=== PATIENT | male | born 1985 | race Two or more races ===

== ENCOUNTER 2016-08-21 09:15 | Emergency (ER) | payer SELFPAY ==
[2016-08-21] MEDS ORDERED: MORPHINE SULFATE 4 MG/ML DISP.SYRIN. IV ONE (10:15)
[2016-08-21] MEDS ORDERED: ONDANSETRON PF 4 MG/2 ML VIAL. IV ONE (10:15)
--- NOTE | 2016-08-21 10:17 | PHYS DOC ---
Past Medical History Past Medical History: No Pertinent History Past Surgical History: No Surgical History Alcohol Use: Occasionally Drug Use: None Adult General Chief Complaint Chief Complaint: ABDOMINAL PAIN HPI HPI 31-year-old male who has significant right upper quadrant pain that does radiate across his abdomen. He states is been worsening over the last several weeks and is noted mostly with meals. He has significant nausea today and he stated the pain did radiate up into his chest or his partner stated he should come in for evaluation. He denies any history of abdominal surgery. He denies any blood in his stool. He states he had a normal stool today. He said he has not eaten much today because of his nausea. He rates the pain an 8/10 on the pain scale. Review of Systems Review of Systems Constitutional: Denies fever or chills [] Eyes: Denies change in visual acuity, redness, or eye pain [] HENT: Denies nasal congestion or sore throat [] Respiratory: Denies cough or shortness of breath [] Cardiovascular: No additional information not addressed in HPI [] GI: Has abdominal pain, has nausea, has vomiting, denies bloody stools or diarrhea [] : Denies dysuria or hematuria [] Musculoskeletal: Denies back pain or joint pain [] Integument: Denies rash or skin lesions [] Neurologic: Denies headache, focal weakness or sensory changes [] Endocrine: Denies polyuria or polydipsia [] Current Medications Current Medications Current Medications Medications (Trade) Dose Ordered Sig/Tay Start Time Stop Time Status Last Admin Dose Admin Info (Do NOT chart on this entry -- for MONITORING) 1 each PRN DAILY PRN 08/21/16 13:15 08/21/16 14:43 DC Iohexol (Omnipaque 300 Mg/ml) 75 ml 1X ONCE 08/21/16 13:15 08/21/16 13:16 DC 08/21/16 13:30 75 ML Morphine Sulfate 4 mg 1X ONCE 08/21/16 10:15 08/21/16 10:16 DC 08/21/16 10:31 4 MG Ondansetron HCl (Zofran) 4 mg 1X ONCE 08/21/16 10:15 08/21/16 10:16 DC 08/21/16 10:29 4 MG Allergies Allergies Allergies Coded Allergies Type Severity Reaction Last Updated Verified No Known Drug Allergies 08/21/16 No Physical Exam Physical Exam Constitutional: Well developed, well nourished, no acute distress, non-toxic appearance. [] HENT: Normocephalic, atraumatic, bilateral external ears normal, oropharynx moist, no oral exudates, nose normal. [] Eyes: PERRLA, EOMI, conjunctiva normal, no discharge. [] Neck: Normal range of motion, no tenderness, supple, no stridor. [] Cardiovascular:Heart rate regular rhythm, no murmur [] Lungs & Thorax: Bilateral breath sounds clear to auscultation [] Abdomen: Bowel sounds normal, soft, RUQ tenderness, no masses, no pulsatile masses. [] Skin: Warm, dry, no erythema, no rash. [] Back: No tenderness, no CVA tenderness. [] Extremities: No tenderness, no cyanosis, no clubbing, ROM intact, no edema. [] Neurologic: Alert and oriented X 3, normal motor function, normal sensory function, no focal deficits noted. [] Psychologic: Affect normal, judgement normal, mood normal. [] Current Patient Data Vital Signs Vital Signs Date Time Temp Pulse Resp B/P Pulse Ox O2 Delivery O2 Flow Rate FiO2 08/21/16 14:35 56 18 117/74 97 Room Air 08/21/16 09:26 98.4 98.4 Lab Values Laboratory Tests Test 08/21/16 10:25 White Blood Count 10.6x10^3/uL (4.0-11.0) Red Blood Count 5.39x10^6/uL (4.30-5.70) Hemoglobin 15.6g/dL (13.0-17.5) Hematocrit 46.2% (39.0-53.0) Mean Corpuscular Volume 86fL (79-100) Mean Corpuscular Hemoglobin 29pg (25-35) Mean Corpuscular Hemoglobin Concent 34g/dL (31-37) Red Cell Distribution Width 13.3% (11.5-14.5) Platelet Count 268x10^3/uL (140-400) Neutrophils (%) (Auto) 62% (31-73) Lymphocytes (%) (Auto) 17% (24-48) L Monocytes (%) (Auto) 5% (0-9) Eosinophils (%) (Auto) 16% (0-3) H Basophils (%) (Auto) 0% (0-3) Neutrophils # (Auto) 6.6x10^3uL (1.8-7.7) Lymphocytes # (Auto) 1.8x10^3/uL (1.0-4.8) Monocytes # (Auto) 0.6x10^3/uL (0.0-1.1) Eosinophils # (Auto) 1.7x10^3/uL (0.0-0.7) H Basophils # (Auto) 0.0x10^3/uL (0.0-0.2) Segmented Neutrophils % 53% (35-66) Band Neutrophils % 3% (0-9) Lymphocytes % 21% (24-48) L Atypical Lymphocytes % (Manual) 2% (0-0) H Monocytes % 5% (0-10) Eosinophils % 15% (0-5) H Basophils % 1% (0-3) Platelet Estimate Adequate (ADEQUATE) Sodium Level 143mmol/L (136-145) Potassium Level 4.2mmol/L (3.5-5.1) Chloride Level 105mmol/L (98-107) Carbon Dioxide Level 29mmol/L (21-32) Anion Gap 9 (6-14) Blood Urea Nitrogen 17mg/dL (8-26) Creatinine 0.8mg/dL (0.7-1.3) Estimated GFR (Cockcroft-Gault) 112.8 BUN/Creatinine Ratio 21 (6-20) H Glucose Level 97mg/dL (70-99) Calcium Level 8.9mg/dL (8.5-10.1) Total Bilirubin 0.3mg/dL (0.2-1.0) Aspartate Amino Transferase (AST) 42U/L (15-37) H Alanine Aminotransferase (ALT) 72U/L (16-63) H Alkaline Phosphatase 92U/L (46-116) Total Protein 7.1g/dL (6.4-8.2) Albumin 3.6g/dL (3.4-5.0) Albumin/Globulin Ratio 1.0 (1.0-1.7) Lipase 107U/L (73-393) Laboratory Tests 08/21/16 10:25 Laboratory Tests 08/21/16 10:25 EKG EKG [] Radiology/Procedures Radiology/Procedures Abdominal CT demonstrates the following: FINDINGS: Lung windows through the visualized portions of the bases reveal interstitial opacities dependently, most likely indicating atelectasis. Trace edema cannot be excluded. There are scattered calcified granulomas. Bone windows reveal no suspicious lesions. There is a 1 cm cyst at the left renal upper pole. There is no hydronephrosis bilaterally. The spleen, pancreas, gallbladder and adrenal glands. A small calcified hepatic granuloma is incidentally noted. There are no pathologically enlarged lymph nodes. The appendix is not inflamed. There is no obstruction. The bladder is distended. The prostate is mildly enlarged for patient age. Abdominal ultrasound: FINDINGS: Sonographic evaluation of the right upper quadrant was performed. The liver appears normal in parenchymal echotexture. There are no focal lesions. The gallbladder is unremarkable without evidence of stones, wall thickening or pericholecystic fluid. There is no sonographic Cuadra sign. The common duct measures 4 mm. The pancreas is of scattered by bowel gas. The right kidney measures at least 9.3 cm. Cortical thickness and echogenicity are preserved. There is no hydronephrosis. The visualized portions of the abdominal aorta and inferior vena cava are grossly patent and normal in caliber. Course & Med Decision Making Course & Med Decision Making Pertinent Labs and Imaging studies reviewed. (See chart for details) This 31-year-old male with moderate right upper quadrant tenderness will have IV and lab work obtained as well as an ultrasound rule out any gallbladder pathology. His labwork shows some mildly elevated liver zymes but no other acute abnormalities. CT of his abdomen is also negative for any acute pathology. Abdominal ultrasound did not reveal any acute findings. Patient is in no acute distress and feels improved upon my final assessment. I will be providing a prescription for Zofran with strict instruction to remain well-hydrated and to follow closely with his primary care doctor and return if he develops any worsening symptoms. Dragon Disclaimer Dragon Disclaimer This electronic medical record was generated, in whole or in part, using a voice recognition dictation system. Departure Departure Impression: Primary Impression: Abdominal pain Disposition: 01 HOME, SELF-CARE Admitting Physician: Other Condition: STABLE Patient Instructions: Abdominal Pain, [id number] Additional Instructions: Please follow up with your primary doctor in the next 2-3 days for your abdominal pain. Return to the ER if you develop any worsening of your symptoms. Continue to drink plenty of fluids. Scripts Ondansetron Hcl (Zofran)4 Mg Tablet4 Mg PO BID PRN NAUSEA/VOMITING #10 TAB Prov:HYUN HAWKINS DO 08/21/16 HYUN HAWKINS DO Aug 21, 2016 10:17
[2016-08-21 10:37] LABS: BASO % 0 % (0-3); EOS % 16 % (0-3); HEMATOCRIT 46.2 % (39.0-53.0); HEMOGLOBIN 15.6 g/dL (13.0-17.5); LYMPH # 1.8 x10^3/uL (1.0-4.8); LYMPH % 17 % (24-48); MEAN CORPUSCULAR HEMOGLOBIN 29 pg (25-35); MEAN CORPUSCULAR HGB CONC 34 g/dL (31-37); MEAN CORPUSCULAR VOLUME 86 fL (79-100); MONO % 5 % (0-9); NEUT % 62 % (31-73); PLATELET COUNT 268 x10^3/uL (140-400); RED BLOOD COUNT 5.39 x10^6/uL (4.30-5.70); RED CELL DISTRIBUTION WIDTH 13.3 % (11.5-14.5); WHITE BLOOD COUNT 10.6 x10^3/uL (4.0-11.0)
[2016-08-21 10:51] LABS: CALCIUM 8.9 mg/dL (8.5-10.1); CREATININE 0.8 mg/dL (0.7-1.3); GFR 112.8; POTASSIUM 4.2 mmol/L (3.5-5.1)
[2016-08-21 10:58] LABS: ALBUMIN 3.6 g/dL (3.4-5.0); TOTAL BILIRUBIN 0.3 mg/dL (0.2-1.0); TOTAL PROTEIN 7.1 g/dL (6.4-8.2)
[2016-08-21 11:38] LABS: % BASOS 1 % (0-3); % EOS 15 % (0-5); PLT ESTIMATE ADEQUATE (ADEQUATE)
--- NOTE | 2016-08-21 12:32 | RAD ---
EXAM: Right upper quadrant ultrasound. HISTORY: Right upper quadrant pain. Nausea. COMPARISON: None. FINDINGS: Sonographic evaluation of the right upper quadrant was performed. The liver appears normal in parenchymal echotexture. There are no focal lesions. The gallbladder is unremarkable without evidence of stones, wall thickening or pericholecystic fluid. There is no sonographic Cuadra sign. The common duct measures 4 mm. The pancreas is of scattered by bowel gas. The right kidney measures at least 9.3 cm. Cortical thickness and echogenicity are preserved. There is no hydronephrosis. The visualized portions of the abdominal aorta and inferior vena cava are grossly patent and normal in caliber. IMPRESSION: 1. No cause for pain is identified. 2. The pancreas is obscured currently.
[2016-08-21] MEDS ORDERED: IOHEXOL 300 MG/ML 75 ML VIAL IV ONE (13:15)
[2016-08-21] MEDS ORDERED: CONTRAST GIVEN MC PRN (13:15)
--- NOTE | 2016-08-21 14:01 | RAD ---
EXAM: CT abdomen/pelvis with contrast. HISTORY: Abdominal pain. TECHNIQUE: Computed tomography of the abdomen and pelvis was performed after the intravenous administration of 75 mL Omnipaque 300. COMPARISON: None. FINDINGS: Lung windows through the visualized portions of the bases reveal interstitial opacities dependently, most likely indicating atelectasis. Trace edema cannot be excluded. There are scattered calcified granulomas. Bone windows reveal no suspicious lesions. There is a 1 cm cyst at the left renal upper pole. There is no hydronephrosis bilaterally. The spleen, pancreas, gallbladder and adrenal glands. A small calcified hepatic granuloma is incidentally noted. There are no pathologically enlarged lymph nodes. The appendix is not inflamed. There is no obstruction. The bladder is distended. The prostate is mildly enlarged for patient age. IMPRESSION: 1. No cause for acute pain is identified. 2. The bladder is distended. Correlate to exclude urinary retention. *One or more of the following individualized dose reduction techniques were utilized for this examination: 1. Automated exposure control. 2. Adjustment of the mA and/or kV according to patient size. 3. Use of iterative reconstruction technique.
[2016-08-21] MEDS ORDERED: ONDA4TAB7 PO (14:29)
[2016-08-21 14:35] VITALS: BP 117/74
== END 2016-08-21 14:42 | disposition home or self-care (01) ==
LOC: ER 09:15
DX: R10.11 Right upper quadrant pain (principal); R79.89 Other specified abnormal findings of blood chemistry; R11.2 Nausea with vomiting, unspecified
CPT/HCPCS: 36415; 74177; 76705; 80053; 83690; 85007; 85027; 96374; 96375; 99285; J2270; J2405; Q9967